=== PATIENT | female | born 1960 | race Caucasian/White ===

== ENCOUNTER 2016-10-30 10:25 | Emergency (ER) | payer OTHER ==
[~2016-10-30] VITALS: Ht 177.8 cm; Wt 109.1 kg
[~2016-10-30 10:25] MED LIST: ATEN-155 PO; ATOR20TA PO; CHOL10008 PO; CYCL10TA9 PO; FLAX1CAP6 PO; LEVO125T6 PO; MELO-253 PO; RANI150C4 PO; TRAM50TA2 PO; [UNRECOGNIZED DRUG - CODE] PO
[2016-10-30 10:58] VITALS: BP 164/104; PULSE 61; RESP 12; O2SAT 98
--- NOTE | 2016-10-30 11:16 | ED.REPORT ---
HPI-Extremity Problem Upper Date of Service Oct 30, 2016 ED Provider: Therese Bo History of Present Illness: cut left thumb with limbing saw around 11 am at home today. tdap less than 10 years. right hand dominant. 3/10 pain. Emily Grewal is primary care. Nursing Notes Stated Complaint: LEFT THUMB LACERATION Chief Complaint: Laceration Nursing Notes Reviewed: Yes Allergies: Coded Allergies: No Known Allergies (Unverified Allergy, Unknown, 03/14/16) Scheduled Atenolol (Tenormin) 50 Mg Tablet 50 MG PO DAILY Atorvastatin (Lipitor) 20 Mg Tablet 20 MG PO DAILY Cholecalciferol (Vitamin D3) (Vitamin D3) 1,000 Unit Tab.chew 1,000 UNIT PO DAILY Flaxseed Oil/[place] 3,6,9 (Sv Flaxseed Oil 1,300 mg Sftgl) 1 Each Capsule 1 EACH PO DAILY Levothyroxine (Levothyroxine) 125 Mcg Tablet 125 MCG PO DAILY Meloxicam (Meloxicam) 15 Mg Tablet 15 MG PO DAILY [place]-3S/Dha/Epa/Fish Oil (Fish Oil EC 1,200 mg Softgel) 1 Each Capsule.dr 1 EACH PO DAILY Ranitidine (Ranitidine) 150 Mg Capsule 150 MG PO BID Scheduled PRN Cyclobenzaprine (Cyclobenzaprine) 10 Mg Tablet 10 MG PO HS PRN PRN Spasm Tramadol (Tramadol) 50 Mg Tablet 50 MG PO DAILY PRN PRN For Pain General Time Seen by MD: 11:15 Chief Complaint Finger injury left 1 Hx Obtained From: Patient Onset Occurred: Just prior to arrival Caused by: Accidental Past Medical History Past Medical History Reports: Hypertension, Denies: Asthma, Diabetes mellitus Past Surgical History knee Smoking History Former Smoker (quit 2011) Social History Alcohol Use: 1-3 per day Drug Use: Denies drug use Occupation live with partner. works for the [employer]. to return on . Ambulatory Status Independent Review of Systems Basic Review of Systems Eyes: Vision NL, No discharge ENT: Hearing NL, No pain, No nasal congestion, No pharyngeal pain Allergy / Immune: No allergy Psychiatric: Normal thought content Physical Exam Initial Vital Signs Vital Signs (First) Date Time Temp Pulse Resp B/P Pulse Ox O2 Delivery O2 Flow Rate FiO2 10/30/16 10:58 36.7 61 12 164/104 98 Room Air Initial VS: Reviewed, Vital signs abnormal General/Constitutional: Well-developed, Well-nourished Head / Eyes: Atraumatic, Normocephalic, PERRL ENT: Mucous membranes moist, Conjunctiva normal, No scleral icterus Neck: Supple, Non-tender, Full range of motion Respiratory: Breath sounds normal, Clear to auscultation, No respiratory distress Cardiovascular: Regular rate & rhythm, Heart sounds normal, Intact distal pulses Abdomen / GI: Soft, Non-tender, No guarding, No rebound, No distention Back: No CVA tenderness Lymphatic: No lymphadenopathy Lower Extremities: Vascular intact, Neuro intact, No swelling, No tenderness Skin: Warm, Dry, No cyanosis Neurologic: Alert, Oriented, Nonfocal Psychiatric: Mood/affect normal, Behavior normal, Normal thought content General/Constitutional: Awake, Alert, No acute distress, Well appearing, Well developed, Well hydrated Respiratory / Chest: Breath sounds NL, Breath sounds = bilat, No respiratory distress, No rales, No rhonchi, No wheezing Cardiovascular: Heart rate NL, Regular rhythm, Heart sounds NL, No gallop Upper Extremity / MS: Atraumatic, Inspection NL, Full range of motion, No swelling left thumb has 2 small flap lacerations on finger tip. Nail has superficial cut, not full thickness. Has full range of motion. sensation intact distally. cap refill less than 2 sec. ENT: Atraumatic, Airway patent, Mucous membranes moist, Pharynx NL Abdomen: Atraumatic, Soft, Non-tender Interpretation & Diagnostics X-Ray Interpretation Xray Interpretation: PROCEDURE: X-RAY FINGERS, TWO VIEWS INDICATIONS: limb saw to thumb TECHNIQUE: AP hand, 2 views of the first finger(s) acquired. COMPARISON: None. FINDINGS: Bones: Irregularity in the proximal aspect of the distal left first phalanx may represent a nondisplaced fracture. Sesamoid bones about the left MID joint. First MTP joint degenerative change . Soft tissues: No suspicious soft tissue calcifications. IMPRESSION: Irregularity in the proximal aspect of the distal left first phalanx may represent a nondisplaced acute fracture. Please correlate for clinical point tenderness at this site. No radiopaque foreign bodies. Dictated by: Jaleel Melton M.D. on 10/30/2016 at 12:04 Approved by: Jaleel Melton M.D. on 10/30/2016 at 12:06 Procedures Laceration Management Time: 12:15 Procedure Performed by: Allied health pract Consent / Setup / Site Prep: Informed consent provided Location of Wound: finger tip, flap laceration .6 Digital Block: No Wound Preparation: Normal saline Debridement: None Irrigation: 150 cc Repair Skin: Dermabond Post-Procedure / Complications: No complications, Condition improved, Tolerated procedure well, Patient stable Re-Eval/Medical Decision Med Decision/Clinical Course 55 year old female presents to the ER for repair of thumb tip injury which occured while using a limb saw. Patient with full range of motion, sensation intact, minimal discomfort. X-ray does not show clear bony damage. Flap injury washed and repaired with dermabond. No sign of compartment syndrome. Discharge & Departure Impression: Primary Impression: Laceration Disposition: Home Patient Instructions: Finger Laceration (ED) Additional Instructions: The x-ray does not show any bony involvement! The wound has been washed and repaired with dermabond!. The glue is waterproof and will fade in 5 to 7 days. Because there is a cut in the nail, it might be helpful to cover it with a band aid till the nail grows out. Please follow with primary care as needed. You are cleared to return to normal activity. REturn with any concerns. Can use ibuprofen 800 mg up to 3 times a day if needed for any discomfort. Referrals: Emily Grewal (PCP) EDSupervising Provider for APC: Tab Mills MD copies to: Emily Grewal Sue ARNP Oct 30, 2016 11:16
--- NOTE | 2016-10-30 12:14 | DRSVH ---
PROCEDURE: X-RAY FINGERS, TWO VIEWS INDICATIONS: limb saw to thumb TECHNIQUE: AP hand, 2 views of the first finger(s) acquired. COMPARISON: None. FINDINGS: Bones: Irregularity in the proximal aspect of the distal left first phalanx may represent a nondispla ibrahima fracture. Sesamoid bones about the left MID joint. First MTP joint degenerative change . Soft tissues: No suspicious soft tissue calcifications. IMPRESSION: Irregularity in the proximal aspect of the distal left first phalanx may represent a nond isplaced acute fracture. Please correlate for clinical point tenderness at this site. No radiopaque f oreign bodies. Dictated by: Jaleel Melton M.D. on 10/30/2016 at 12:04 Approved by: Jaleel Melton M.D. on 10/30/2016 at 12:06
== END 2016-10-30 12:24 | disposition home or self-care (01) ==
LOC: SED 10:25
DX: S61.012A Laceration without foreign body of left thumb without damage to nail, initial encounter (principal); W27.0XXA Contact with workbench tool, initial encounter; Y93.89 Activity, other specified; Y92.019 Unspecified place in single-family (private) house as the place of occurrence of the external cause; Y99.8 Other external cause status; I10 Essential (primary) hypertension; Z87.891 Personal history of nicotine dependence

== ENCOUNTER → 2017-01-10 | Day surgery (SDC) | payer OTHER ==
[~2017-01-10] VITALS: Ht 177.8 cm; Wt 104.9 kg
[~2017-01-10] MED LIST changes: +ACET-171 PO; -ATEN-155 PO; +ATEN50TA PO; +Bupivacaine-MPF 0.5% 30 mL Inj INFILTRATE ONE; +CA C1TAB29 PO; +CALC600T12 PO; -CHOL10008 PO; -CYCL10TA9 PO; +CYCL5TAB PO; +IBUP-1827 PO; +Lidocaine PF 1% 30 mL Inj INFILTRATE ONE; +METO-369 PO; +OMEG1CAP99 PO; +Propofol 10,000 mCg/mL 20 mL Inj ONE; -[UNRECOGNIZED DRUG - CODE] PO; +fentaNYL-PF 50 mCg/mL 2 mL Inj ONE
[2017-01-10] MEDS: Lactated Ringer's 1,000 ML IV SCH ×2 (06:03→07:35)
[2017-01-10 06:11] VITALS: BP 161/88; PULSE 55; RESP 16; O2SAT 98
--- NOTE | 2017-01-10 07:19 | PCM.HPANE ---
Patient Data Date of Service: Jan 10, 2017 (0715) Surgeon Admitting Provider: Attending Provider:Arlene Uriarte MD Primary Care Physician:Emily Grewal Other Provider:[place] Pool Anesthesia Reason for Visit Right Groin Varicosity Mass Ht/WT & BMI Height (Feet): 5 Height (Inches): 10 Weight (Kilograms): 104.9 Body Mass Index 33.00 Allergies Coded Allergies: No Known Allergies (Unverified Allergy, Unknown, 01/08/17) Past Anesthesia History Anesthesia History: Positive for:: Fam Anesthesia Reaction (mother irrigular beat = passing out), Denies:: Abnormal Airway, Anesthesia Reactions, Difficult Intubation, Fam Malignant Hypertherm, Malignant Hyperthermia Diabetes History Hx Diabetes?: No MRSA MRSA: No Medications Hypertension Medication: Yes (metoprolol) Home Meds Incl Beta Marylin: Yes (atenolol) Date Beta Marylin Taken: Jan 10, 2017 Time Beta Marylin Taken: 0430 Reported Medications Atenolol 50 Mg Tkfveg89 Mg PO DAILY #30 TABLET Ref 0 01/10/17 Ca Cmb 1/Vit D3/B-6/FA/B12/Av (Vitamin D3-Aloe 1,000 Unit Tab)1 Each Tablet1 Each PO DAILY 01/08/17 Flaxseed Oil/[place] 3,6,9 (Sv Flaxseed Oil 1,300 mg Sftgl)1 Each Capsule1 Each PO DAILY 01/08/17 [place]-3 Fatty Acids/Fish Oil (Fish Oil 1,200 mg Softgel)1 Each Capsule1 Each PO DAILY 01/08/17 Tramadol 50 Mg Zbjpky21 Mg PO TID PRN For Pain Ref 0 01/08/17 Ranitidine 150 Mg [id number] Mg PO BID Ref 0 01/08/17 Meloxicam 15 Mg Oggjab65 Mg PO DAILY 30 Days Ref 0 01/08/17 Atorvastatin (Lipitor)20 Mg Nrpqzo12 Mg PO DAILY Ref 0 01/08/17 Levothyroxine 125 Mcg Omnpqi284 Mcg PO DAILY For Thyroid Replacement Ref 0 01/08/17 Cyclobenzaprine 5 Mg Tablet5 Mg PO TID PRN Spasm 01/08/17 Calcium Carbonate (Calcium)600 Mg Jtcslg711 Mg PO DAILY 01/08/17 Discontinued Reported Medications Metoprolol Succinate ER 50 Mg Tab.er.24h50 Mg PO DAILY Ref 0 9/12/17 Tramadol 50 Mg Kudqfh20 Mg PO DAILY PRN For Pain Ref 0 03/15/16 Cholecalciferol (Vitamin D3) (Vitamin D3)1,000 Unit Tab.chew1,000 Unit PO DAILY 03/14/16 Atenolol (Tenormin)50 Mg Mcndsf02 Mg PO DAILY 30 Days Ref 0 03/14/16 Ranitidine 150 Mg Jaxauxz650 Mg PO BID Ref 0 03/14/16 Meloxicam 15 Mg Ixzaef49 Mg PO DAILY 30 Days Ref 0 03/14/16 Atorvastatin (Lipitor)20 Mg Dcpvwe58 Mg PO DAILY Ref 0 03/14/16 Levothyroxine 125 Mcg Olxutn420 Mcg PO DAILY For Thyroid Replacement Ref 0 03/14/16 Flaxseed Oil/[place] 3,6,9 (Sv Flaxseed Oil 1,300 mg Sftgl)1 Each Capsule1 Each PO DAILY 03/14/16 [place]-3S/Dha/Epa/Fish Oil (Fish Oil EC 1,200 mg Softgel)1 Each Capsule.dr1 Each PO DAILY 03/14/16 Cyclobenzaprine 10 Mg Wfyepm26 Mg PO HS PRN Spasm Ref 0 03/14/16 History History of ENT Problems?: No HEENT History: Denies:: Abnormal Airway Cataracts Difficult Intubation Dysphagia Glaucoma Hearing Problem TMJ Denture Type: None Teeth Condition: Within Normal Limits Hx of Heart Problems?: No Cardiovascular History: Positive for:: Hypertension Denies:: AICD Atrial Fibrillation Chest Pain Pacemaker Valvular Heart Disease Hx of Respiratory Problem?: No Respiratory History: Denies:: Asthma Use of C-PAP Machine Hx Neurologic Problems?: No Neurological History: Denies:: Alzheimer's Disease CVA Dementia Dizziness Headaches Multiple Sclerosis Parkinson's Disease Seizures TIA Hx of GI Problems?: No Hx of Problems?: No Female Hx: Positive for:: Problems with Breasts? (left breast lump) Skin History: Denies:: History Skin Disorders? Pressure Ulcers Hx Musculoskeletal Problems?: Yes Musculoskeletal History: Positive for:: Degenerative Joint Osteoarthritis Denies:: Fibromyalgia Joint Replacement Musculoskeletal Trauma Myasthenia Gravis Rheumatoid Arthritis Systemic Lupus Hx of Psycho/Social Problems?: No Hx Surgeries?: Yes (VEIN STRIPPING, LYMPH NODE FROM NECK, KNEE AND SHOULDER REPAIR) Hx Any Other Health Problems?: Yes Other History: Positive for:: Hospitalization (knee surg 2004 - 2008) Thyroid Disease (Hypothyroidism) Denies:: Cancer Endocrine Disease History Blood Transfusions: Positive for:: Accept Blood Products? Denies:: Blood Transfusions Hx Diabetes: No Hx Alcohol Use: YesAlcoholic Drinks Per Day: 2-3 mixed drinks a dayHx Substance Use: No Smoking Status: Former Smoker Have You Smoked inLast 12 mo: No Stop/Bang S-Snoring: Do You Snore Loudly: No T-Tired: feel tired, fatigued: No O-Obsered: Observed not breath: No P-Blood Pressure: treated: Yes B- Body Mass Index > 35 kg/m2: Yes A- Age over 50: Yes N- Neck Large Circumference: No G- Gender Male: No LEONEL Total Score: 3 LEONEL Risk Assessment: Low Risk, <3 Yes Risk Assessment Category Category 1A: Patient has history of documented sleep apnea, and HAS NOT received any narcotic, sedative or anesthesia administration during this stay. Category 1B: Patient has history of documented sleep apnea, and HAS received any narcotic , sedative or anesthesia administration during this stay Category 2: Patient has SUSPECTED Obstructive Sleep Apnea, and HAS received any narcotic , sedative or anesthesia administration during this stay. Category 3: Patient has SUSPECTED Obstructive Sleep Apnea and HAS NOT received narcotic, sedative or anesthesia administration during this stay. Category 4: Outpatient in Procedural Areas with known sleep apnea or who screen positive for High Risk via the STOP/BANG questionnaire. Exam Exam Vital Signs Vital Signs Date Time Temp Pulse Resp B/P Pulse Ox O2 Delivery O2 Flow Rate FiO2 01/10/17 06:11 36.4 55 16 161/88 98 Room Air General Appearance: Alert, Oriented X3 HEENT/AIRWAY: MP 1 Lungs: Clear to Auscultation Heart: Exam Unremarkable Meds/Labs/Diagnostics Admission Meds Current Medications Lactated Ringer's (Lr) 1,000 ml @ 120 mls/hr Q8H20M IV Last administered on t 06:03; Start 01/10/17 at 05:00; Stop 01/10/17 at 13:19 Plan Impression Patient chart reviewed, patient interviewed and anesthestic plan with risks, benefits, and alternatives discussed, and informed consent obtained. NPO per Anesth. Guidelines: Yes ASA Physical Status: ASA2 Mod Systemic Disease Anesthetic Plan: GA Bene/Risks/Altern/Consents: Yes HP Complete Prior to Induction: Yes Bulmaro Gramajo MD Jan 10, 2017 07:19
--- NOTE | 2017-01-10 08:22 | PCM.DISURG ---
Surgical Discharge Instruction Date of Service Jan 10, 2017 Dates of Hospitalization Date of Hospital Admission Providers Admitting Physician: Primary Care Physician: Emily Grewal Attending Physician: Arlene Uriarte MD Diet Discharge Diet: No restrictions Activity Discharge Activity-General: No restrictions Dressing and Incisional Care Dressing Care: Other ([place] dressing will flake off in 1-2 weeks. ) Hygiene: May shower Follow Up Plan Follow-up appointment: As needed Call your provider for: Discharge @ incision, pus discharge Rufino Salas MD Jan 10, 2017 08:22
--- NOTE | 2017-01-10 08:25 | PCM.ANEP1 ---
Post Anesthesia PACU Phase 1 Assessment Vital Signs 129/76, 97%, 67, 16, 36.7 Vital Signs Date Time Temp Pulse Resp B/P Pulse Ox O2 Delivery O2 Flow Rate FiO2 01/10/17 06:11 36.4 55 16 161/88 98 Room Air Anesthetic Administered: GA, MAC Level of Alertness: Awake, talking CLAUDIO's with Equal Strength: Yes Pain: No Nausea or Vomiting: No CV Function & Hydration Stable: Yes Airway Device: none Lungs: Clear to Auscultation Dermatome Level: Full Sensation Summary uneventful sedation PACU Phase 2 Assessment Complications: No Follow up Care: No Patient Instructions Provided: N/A Bulmaro Gramajo MD Jan 10, 2017 08:25
[2017-01-10 08:26] VITALS: BP 129/76; PULSE 67; RESP 16; O2SAT 97
--- NOTE | 2017-01-10 08:51 | PCM.SURGOP ---
Surgical Operative Report Date of Service: Jan 10, 2017 Pre Operative Diagnosis Right groin varicosity Post Operative Diagnosis Right groin varicosity Procedure: Ligation of right groin varicosity Surgeon and Hydrogen Braze Furnace Operator: Surgeon: Arlene Uriarte MD Assistants: Rufino Salas M.D. R3; Makeda Chen, MS 3 Indication for Procedure This is a 56-year-old woman who has a history of bilateral greater saphenous vein radiofrequency ablation in 2008, who presented with a large, painful, right groin varicosity. An ultrasound was performed confirming the diagnosis. Due to her symptoms, ligation of the varicosity was offered. Findings: 1 cm vein in the right groin while the patient was supine, ligated. Procedure Details The patient was brought to the operating room and placed in supine position. General anesthesia with an LMA was smoothly induced. A warming blanket and SCDs were placed. Antibiotics were infused. The operative field was prepped and draped in sterile fashion. A pause was performed to confirm the correct patient, procedure, site, and side. The patient had been marked preoperatively while standing in the preoperative area. Local anesthetic was instilled and an oblique incision was made in the right groin over the region of greatest pain and increase in size. Subcutaneous tissue was dissected with electrocautery. The vein was identified in the subcutaneous tissue. It was ligated distal and proximal with 2-0 Prolene End of the middle with Metzenbaum scissors. Exploration of the remainder of the groin revealed no additional veins. Subcutaneous tissue was closed with 3-0 Vicryl stitches. The skin was closed with a running 4-0 Monocryl stitch. Marcaine 0.5% with epinephrine was infused in the skin for postoperative analgesia. A sterile dressing was placed. The patient was taken to postoperative care unit in good condition. Complications There were no periprocedural complications identified. Surgical Specimen Removed: No Specimen sent to Pathology: No Anesthetic Plan: GA, MAC Grafts, Implants: None Output, Estimated Blood Loss: 1 (ml) Blood Administration during hearn: No Arlene Uriarte MD Jan 10, 2017 08:51
[2017-01-10 09:00] VITALS: BP 130/79; PULSE 61; RESP 16; O2SAT 97
== END | disposition home or self-care (01) ==
LOC: SAS 05:52
PROVIDERS: ATTEND Surgery
DX: I83.811 Varicose veins of right lower extremity with pain (principal); E78.5 Hyperlipidemia, unspecified; I10 Essential (primary) hypertension; K21.9 Gastro-esophageal reflux disease without esophagitis; E03.9 Hypothyroidism, unspecified; Z87.891 Personal history of nicotine dependence
CPT/HCPCS: 37785; J1885; J2250; J2704; J3010; J7120